=== PATIENT | female | born 1965 | race Caucasian/White ===

== ENCOUNTER 2020-05-20 10:32 | Emergency (ER) | payer MEDICARE, MEDICAID, SELFPAY ==
[2020-05-20 11:16] VITALS: BP 127/79; PULSE 74; RESP 16; TEMP 36.4; O2SAT 98; BMI 16.6
--- NOTE | 2020-05-20 11:31 | ED_ITS ---
HPI - Extremity Problem General Chief complaint: Extremity Injury, Upper Stated complaint: sharp abd pain Time Seen by Provider: 05/20/20 11:31 Source: patient Mode of arrival: ambulatory Limitations: no limitations History of Present Illness HPI Narrative: Epigastric abdominal pain for past 2 weeks now having pain radiating down to his suprapubic area and up into the chest. States she does have longstanding history of bowel problems were she has fluctuation between constipation and diarrhea with occasional pains in epigastrium. States she took some [id number] Tums with minimal improvement. No no cough, chest pain, shortness of breath. No lower extremity swelling. Positive nausea but no vomiting. Related Data Previous Rx's Medication Instructions Recorded omeprazole magnesium [Prilosec OTC] 20 mg PO DAILY 14 Days #14 tab 05/20/20 Allergies Allergy/AdvReac Type Severity Reaction Status Date / Time acetaminophen AdvReac Mild NAUSEA Unverified 02/05/20 15:32 [From DARVOCET-N] propoxyphene AdvReac Mild NAUSEA Unverified 02/05/20 15:32 [From DARVOCET-N] Review of Systems Review of Systems: Constitutional: No Weight loss, No Fever, No Chills, No Night Sweats, No Fatigue, No Malaise ENT/Mouth: No Hearing loss, No Ear Pain, No Nasal Congestion, No Sinus Pain, No Hoarseness, No sore throat, No Rhinorrhea, No Swallowing Difficulty Eyes: No Eye Pain, No Swelling, No Redness, No Foreign Body, No Discharge, No Vision Changes Cardiovascular: No Chest Pain, No SOB, No Dyspnea on Exertion, No Orthopnea, No Edema, No Palpitations Respiratory: No Cough, No Sputum, No Wheezing, No Smoke Exposure, No Dyspnea Gastrointestinal: + Nausea, No Vomiting, No Diarrhea, No Constipation, + abdominal Pain, No Hematochezia, No Melena Genitourinary: no irregular bleeding, No Dysuria, No Urinary Frequency, No Hematuria, No Urinary Incontinence, No Urgency, No Flank Pain Musculoskeletal: No joint pain, No Myalgias, No Joint Swelling Skin: No Skin Lesions, No rash Neuro: No Weakness, No Numbness, No Paresthesias, No Loss of Consciousness, No Dizziness, No Headache Psych: No Social Issues Heme/Lymph: No Bruising, No Bleeding,No Lymphadenopathy Endocrine: No Polyuria, No Polydipsia, No Temperature Intolerance Yes all other systems are reviewed and are negative [facility] Past Medical History Medical History (Updated 05/20/20 @ 14:05 by Emmett Hernandez NP) No known health problems Social History Social History Alcohol intake: never Smoking Status: Current every day smoker Smoked in Last 30 Days: Yes Use of substances other than those prescribed or required for medical reasons: No Advance Directives: No Advance Directives Information Provided: No Physical Exam Vital Signs: Vital Signs: Last Vital Signs Temp 97.5 F 05/20/20 11:16 Pulse 74 05/20/20 11:16 Resp 16 05/20/20 11:16 BP 127/79 05/20/20 11:16 Pulse Ox 98 05/20/20 11:16 Body Mass Index 16.6 REVIEWED Const: General: cooperative and healthy appearing; No acute distress or intoxicated appearing Nutritional Appearance: average body habitus Orientation/consciousness: patient oriented x3 HENMT: Head: Yes normal to inspection Ears: hearing grossly normal bilaterally Eyes: General: appearance normal, both eyes and all related structures Visual Mccarthy: normal visual mccarthy by confrontation Neck: Neck: Yes normal visual inspection and No tender Thyroid: Thyroid normal Chest: Chest palpation & inspection: normal inspection of the chest Resp: Effort & Inspection: normal respiratory effort Auscultation: clear to auscultation bilaterally Cardio: Jugular venous distension: no JVD Rhythm: regular rhythm Heart sounds: S1 normal heart sound present and S2 normal heart sound present GI: Inspection: Yes normal to inspection Palpation (GI): Soft to palpation and Tenderness to palpation present (GI) (mild ttp, no peritonitis.) in the epigastrum Percussion: Yes normal to percussion Auscultation: normal bowel sounds : General: Yes no CVA tenderness Back/Spine/Pelvis: Back: no CVA tenderness Skin: General skin exam: no rashes or lesions noted Neuro: General: patient oriented x3 Extrem: General: Yes normal to inspection Course Course Course Narrative: Acute gastritis versus flare of her IBS. Labs show very mild thrombocytopenia otherwise no significant derangement. Chest x-ray, EKG, CT scan no significant abnormality. Will be discharged home with short course PPI, return for follow-up instructions. She feels comfortable plan. No pain at this time requests something the eat. Stable for discharge. MDM - Extremity (Nontraumatic) Lab Data Result diagrams: 05/20/20 12:28 05/20/20 12:28 Labs: Lab Results 05/20/20 05/20/20 05/20/20 Range/Units 12:28 12:28 12:28 WBC 4.1 L (4.8-10.8) X10*3/uL RBC 4.82 (4.20-5.50) X10*6/uL Hgb 15.8 (12.0-16.0) g/dl Hct 47.3 H (37-47) % MCV 98.1 H (80-98) fL MCH 32.8 (27.0-33.0) pg MCHC 33.4 (31.0-35.0) g/dl RDW 11.9 (11.0-16.0) % Plt Count 156 L (160-400) X10*3/uL MPV 10.1 (9.4-12.3) fL Immature Gran % (Auto) 0.2 (0.0-0.4) % Neut % (Auto) 52.4 (45-73) % Lymph % (Auto) 33.9 (20-40) % Delta % (Auto) 8.1 (2-11) % Eos % (Auto) 4.4 H (0-4) % Baso % (Auto) 1.0 (0-2) % Lymph # (Auto) 1.4 (1.2-4.9) X10*3/uL Delta # (Auto) 0.3 (0.1-1.2) X10*3/uL Eos # (Auto) 0.2 (0.0-0.4) X10*3/uL Baso # (Auto) 0.0 (0.0-0.2) X10*3/uL Abs Immat Gran (auto) 0.01 (0.00-0.03) X10*3/uL Absolute Neuts (auto) 2.1 (2.0-8.3) X10*3/uL Absolute Nucleated RBC 0.000 (0.0-0.012) X10*3/uL Nucleated RBC % (auto) 0.0 (0.0-0.2) /100WBC Smear Tech's Comments VERIFIED PT 10.9 (10.8-13.0) SEC INR 0.9 (0.9-1.1) APTT 30.0 (24.1-38.0) SEC Sodium 141 (135-145) mmol/L Potassium 4.9 (3.3-5.1) mmol/l Chloride 103 (96-108) mmol/L Carbon Dioxide 29 (22-29) mmol/L Anion Gap 14 (12-20) BUN 12 (9-16) mg/dL Creatinine 0.70 (0.5-1.4) mg/dL Estim Creat Clear Calc 69.7 Estimated GFR > 60 Random Glucose 87 (60-115) mg/dL Calcium 9.7 (8.4-10.2) mg/dL Total Bilirubin < 0.2 (0.0-1.0) mg/dL AST 20 (5-31) U/L ALT 13 (0-31) U/L Alkaline Phosphatase 57 (39-117) U/L Troponin I High Sens (<3.5-17.0) ng/L Total Protein 7.3 (6.5-8.0) g/dL Albumin 4.5 (3.5-5.0) g/dL Urine Color Urine Appearance Urine pH (5.0-8.0) Ur Specific Connell (1.005-1.025) Urine Protein (NEG-TRACE) MG/DL Urine Glucose (UA) (NEG) MG/DL Urine Ketones (NEG) MG/DL Urine Blood (NEG) Urine Nitrite (NEG) Ur Leukocyte Esterase (NEG) Urine RBC (0) /HPF Urine WBC (0-4) /HPF Ur Squamous Epith Cells /LPF Urine Bacteria /LPF Coronavirus (PCR) (Negative) Influenza Type A (PCR) (Negative) Influenza Type B (PCR) (Negative) RSV RNA Qual (PCR) (Negative) 05/20/20 05/20/20 05/20/20 Range/Units 12:28 12:47 12:48 WBC (4.8-10.8) X10*3/uL RBC (4.20-5.50) X10*6/uL Hgb (12.0-16.0) g/dl Hct (37-47) % MCV (80-98) fL MCH (27.0-33.0) pg MCHC (31.0-35.0) g/dl RDW (11.0-16.0) % Plt Count (160-400) X10*3/uL MPV (9.4-12.3) fL Immature Gran % (Auto) (0.0-0.4) % Neut % (Auto) (45-73) % Lymph % (Auto) (20-40) % Delta % (Auto) (2-11) % Eos % (Auto) (0-4) % Baso % (Auto) (0-2) % Lymph # (Auto) (1.2-4.9) X10*3/uL Delta # (Auto) (0.1-1.2) X10*3/uL Eos # (Auto) (0.0-0.4) X10*3/uL Baso # (Auto) (0.0-0.2) X10*3/uL Abs Immat Gran (auto) (0.00-0.03) X10*3/uL Absolute Neuts (auto) (2.0-8.3) X10*3/uL Absolute Nucleated RBC (0.0-0.012) X10*3/uL Nucleated RBC % (auto) (0.0-0.2) /100WBC Smear Tech's Comments PT (10.8-13.0) SEC INR (0.9-1.1) APTT (24.1-38.0) SEC Sodium (135-145) mmol/L Potassium (3.3-5.1) mmol/l Chloride (96-108) mmol/L Carbon Dioxide (22-29) mmol/L Anion Gap (12-20) BUN (9-16) mg/dL Creatinine (0.5-1.4) mg/dL Estim Creat Clear Calc Estimated GFR Random Glucose (60-115) mg/dL Calcium (8.4-10.2) mg/dL Total Bilirubin (0.0-1.0) mg/dL AST (5-31) U/L ALT (0-31) U/L Alkaline Phosphatase (39-117) U/L Troponin I High Sens < 3.5 (<3.5-17.0) ng/L Total Protein (6.5-8.0) g/dL Albumin (3.5-5.0) g/dL Urine Color YELLOW Urine Appearance CLEAR Urine pH 6.5 (5.0-8.0) Ur Specific Connell <= 1.005 (1.005-1.025) Urine Protein NEG (NEG-TRACE) MG/DL Urine Glucose (UA) NEG (NEG) MG/DL Urine Ketones NEG (NEG) MG/DL Urine Blood NEG (NEG) Urine Nitrite NEG (NEG) Ur Leukocyte Esterase NEG (NEG) Urine RBC 0 (0) /HPF Urine WBC 0 (0-4) /HPF Ur Squamous Epith Cells NONE /LPF Urine Bacteria NONE /LPF Coronavirus (PCR) NEGATIVE (Negative) Influenza Type A (PCR) NEGATIVE (Negative) Influenza Type B (PCR) NEGATIVE (Negative) RSV RNA Qual (PCR) NEGATIVE (Negative) Imaging Data Abdominal/pelvis CT: Radiologist's impression: [place] [address] CT Scan Report Signed Patient: Magda Allen#: [id number] : 1965Acct:[id number] Age/Sex: 55 / FADM Date: 05/20/20 Loc: HO.ED Attending Dr: Ordering Physician: Emmett Hernandez NP Date of Service: 05/20/20 Procedure(s): CT abdomen pelvis w con Accession Number(s): [id number] cc: Emmett Hernandez NP~ EXAMINATION: CT ABDOMEN AND PELVIS WITH CONTRAST CLINICAL INFORMATION: Abdominal pain. COMPARISON: None TECHNIQUE: Multidetector volumetric images were obtained from the superior aspect of the liver through the pubic symphysis following administration 85 mL of Omnipaque 350 intravenous contrast. Sagittal and coronal reformatted images were obtained on the technologist's workstation. Oral contrast: No This CT examination was performed using dose optimization techniques as appropriate, variously including the following: *Automated exposure control *Adjustment of mA and/or kV according to patient size (this includes techniques or standardized protocols for targeted exams where dose is matched to indication/reason for exam; i.e. extremities or head) *Use of iterative reconstruction technique DLP: 299 mGy-cm FINDINGS: LUNG BASES: Minimal atelectatic changes seen in the lingula medially. The lung bases are clear.. The heart size is normal. LIVER, GALLBLADDER, AND BILIARY TREE: The liver is normal in size, shape, and attenuation. There is a 9 mm hypodensity right hepatic lobe axial image 34/3 and a 4 minute hypodensity caudate lobe image 32/3 most suggestive of simple cyst. There is mild intrahepatic ductal prominence. The common bile duct however appears to be normal caliber. The gallbladder is unremarkable with no evidence of radiopaque gallstones, gallbladder wall thickening, or obvious pericholecystic inflammatory changes. PANCREAS: Unremarkable. SPLEEN: Unremarkable. ADRENAL GLANDS: Unremarkable. KIDNEYS AND URETERS: The kidneys are normal in size, shape, and attenuation. No hydronephrosis, hydroureter, or calculi seen. No perinephric stranding. BLADDER: Unremarkable. GASTROINTESTINAL TRACT: There is scattered stool and gas seen throughout the colon without significant distention. The small bowel loops are normal caliber. The stomach is nondistended and appears unremarkable. ABDOMINAL WALL: No significant hernia is appreciated. LYMPH NODES: Normal. VASCULAR: Unremarkable. PELVIC VISCERA: There is no free fluid. The uterus is anteverted and appears unremarkable. OSSEOUS STRUCTURES: Unremarkable. CT/CT abdomen pelvis w con IMPRESSION: Moderate constipation. No acute process seen. Small hepatic cyst. Nonspecific mild prominence of intrahepatic ducts with a normal-appearing CBD. Dictated By:CHIVO SALAS MD Signed By:<Electronically signed by CHIVO SALAS MD in OV>05/20/20 1349 DD/ 1148 TD/TT: Pharmacognosy Teacher: FARHAD Chest x-ray: Radiologist's impression: [address] [address] XRay Report Signed Patient: Magda Allen#: [id number] : 1965Acct:[id number] Age/Sex: 55 / FADM Date: 05/20/20 Loc: HO.ED Attending Dr: Ordering Physician: Emmett Hernandez NP Date of Service: 05/20/20 Procedure(s): XR chest 1V Accession Number(s): [id number] cc: Emmett Hernandez NP~ EXAMINATION: XR CHEST CLINICAL INFORMATION: Chest pain COMPARISON: None TECHNIQUE: Frontal view of the chest was obtained. FINDINGS: The lungs are hyperinflated but clear of acute process. The heart size and pulmonary vascularity is normal. No gross bony abnormality seen. XR/XR chest 1V IMPRESSION: Hyperinflated lungs without acute process. No change from 05/03/2019. Dictated By:CHIVO SALAS MD Signed By:<Electronically signed by CHIVO SALAS MD in OV>05/20/20 1212 DD/ 1148 TD/TT: Pharmacognosy Teacher: [facility] [place] ECG Data Interpretation: Sinus Mohit Rate 54 First degree AV block PVC SD interval within normal limits No acute ST segment changes No previous Discharge Plan Discharge Clinical Impression: Abdominal pain, epigastric, Constipation, Thrombocytopenia Patient Disposition: Home, Self-Care Instructions: Abdominal Pain (ED) Additional Instructions: Drinking fluids High-fiber diet Taking medication as prescribed Return if any concerns or worsening symptoms otherwise follow up her primary care doctor as discussed Thank you Prescriptions: New omeprazole magnesium [Prilosec OTC] 20 mg tablet,delayed release (DR/EC) 20 mg PO DAILY 14 Days Qty: 14 RF: 0 Referrals: Physician,Unknown [Primary Care Provider] - 1 week Discharge Date/Time: 05/20/20 14:16
--- NOTE | 2020-05-20 11:48 | ECG_ITS ---
Test Reason : STOMACH PAIN Blood Pressure : / mmHG Vent. Rate : 054 BPM Atrial Rate : 054 BPM P-R Int : 272 ms QRS Dur : 080 ms QT Int : 454 ms P-R-T Axes : 052 074 081 degrees QTc Int : 430 ms Sinus bradycardia with 1st degree A-V block with occasional Premature ventricular complexes Abnormal ECG No previous ECGs available Referred By: Emmett Hernandez Electronically Signed By:PRO WHITING
--- NOTE | 2020-05-20 11:48 | CT_ITS ---
EXAMINATION: CT ABDOMEN AND PELVIS WITH CONTRAST CLINICAL INFORMATION: Abdominal pain. COMPARISON: None TECHNIQUE: Multidetector volumetric images were obtained from the superior aspect of the liver through the pubic symphysis following administration 85 mL of Omnipaque 350 intravenous contrast. Sagittal and coronal reformatted images were obtained on the technologist's workstation. Oral contrast: No This CT examination was performed using dose optimization techniques as appropriate, variously including the following: *Automated exposure control *Adjustment of mA and/or kV according to patient size (this includes techniques or standardized protocols for targeted exams where dose is matched to indication/reason for exam; i.e. extremities or head) *Use of iterative reconstruction technique DLP: 299 mGy-cm FINDINGS: LUNG BASES: Minimal atelectatic changes seen in the lingula medially. The lung bases are clear.. The heart size is normal. LIVER, GALLBLADDER, AND BILIARY TREE: The liver is normal in size, shape, and attenuation. There is a 9 mm hypodensity right hepatic lobe axial image 34/3 and a 4 minute hypodensity caudate lobe image 32/3 most suggestive of simple cyst. There is mild intrahepatic ductal prominence. The common bile duct however appears to be normal caliber. The gallbladder is unremarkable with no evidence of radiopaque gallstones, gallbladder wall thickening, or obvious pericholecystic inflammatory changes. PANCREAS: Unremarkable. SPLEEN: Unremarkable. ADRENAL GLANDS: Unremarkable. KIDNEYS AND URETERS: The kidneys are normal in size, shape, and attenuation. No hydronephrosis, hydroureter, or calculi seen. No perinephric stranding. BLADDER: Unremarkable. GASTROINTESTINAL TRACT: There is scattered stool and gas seen throughout the colon without significant distention. The small bowel loops are normal caliber. The stomach is nondistended and appears unremarkable. ABDOMINAL WALL: No significant hernia is appreciated. LYMPH NODES: Normal. VASCULAR: Unremarkable. PELVIC VISCERA: There is no free fluid. The uterus is anteverted and appears unremarkable. OSSEOUS STRUCTURES: Unremarkable. CT/CT abdomen pelvis w con IMPRESSION: Moderate constipation. No acute process seen. Small hepatic cyst. Nonspecific mild prominence of intrahepatic ducts with a normal-appearing CBD.
--- NOTE | 2020-05-20 11:48 | XR_ITS ---
EXAMINATION: XR CHEST CLINICAL INFORMATION: Chest pain COMPARISON: None TECHNIQUE: Frontal view of the chest was obtained. FINDINGS: The lungs are hyperinflated but clear of acute process. The heart size and pulmonary vascularity is normal. No gross bony abnormality seen. XR/XR chest 1V IMPRESSION: Hyperinflated lungs without acute process. No change from 05/03/2019.
[2020-05-20] MEDS: 0.9 % Sodium Chloride 1,000 ML 999 ML IV (12:31)
[2020-05-20 12:41] LABS: Eosinophils Absolute Auto 0.2 X10*3/uL (0.0-0.4); Eosinophils Percent Auto 4.4 % (0-4); Hematocrit 47.3 % (37-47); Hemoglobin 15.8 g/dl (12.0-16.0); Imm Gran Abs Auto 0.01 X10*3/uL (0.00-0.03); Imm Gran Pct Auto 0.2 % (0.0-0.4); Lymphocytes Absolute Auto 1.4 X10*3/uL (1.2-4.9); Lymphocytes Percent Auto 33.9 % (20-40); MANUAL DIFF FLAG SCAN; Mean Corpuscular HGB Conc 33.4 g/dl (31.0-35.0); Mean Corpuscular Hemoglobin 32.8 pg (27.0-33.0); Mean Corpuscular Volume 98.1 fL (80-98); Monocytes Absolute Auto 0.3 X10*3/uL (0.1-1.2); Monocytes Percent Auto 8.1 % (2-11); Neutrophils Absolute Auto 2.1 X10*3/uL (2.0-8.3); Neutrophils Percent Auto 52.4 % (45-73); PLT CLUMP 1; Red Blood Count 4.82 X10*6/uL (4.20-5.50); Red Cell Distribution Width 11.9 % (11.0-16.0); SCAN SMEAR FLAG 1
[2020-05-20 12:46] LABS: INTERNATIONAL NORM RATIO 0.9 (0.9-1.1); Prothrombin Time 10.9 SEC (10.8-13.0)
[2020-05-20 12:55] LABS: Glucose Urine UA NEG (NEG); Leukocyte Esterase Urine NEG (NEG); Nitrite Urine NEG (NEG); PH 6.5 (5.0-8.0); Specific Gravity - Urine <= 1.005 (1.005-1.025); Urine Blood NEG (NEG); Urine Ketones NEG (NEG); Urine Protein NEG (NEG-TRACE)
[2020-05-20 12:56] LABS: Appearance Urine CLEAR; Color Urine YELLOW
[2020-05-20 12:57] LABS: Mean Platelet Volume 10.1 fL (9.4-12.3); Platelet Count 156 X10*3/uL (160-400); White Blood Count 4.1 X10*3/uL (4.8-10.8)
[2020-05-20 12:58] LABS: SLIDE REVIEW VERIFIED
[2020-05-20 13:05] LABS: RBC Urine 0 /HPF (0); WBC Urine 0 /HPF (0-4)
[2020-05-20 13:10] LABS: Troponin-I High Sensitivity < 3.5 ng/L (<3.5-17.0)
[2020-05-20 13:11] LABS: Alanine Aminotransferase 13 U/L (0-31); Albumin Level 4.5 g/dL (3.5-5.0); Alkaline Phosphatase 57 U/L (39-117); Anion Gap 14 (12-20); Aspartate Amino Transferase 20 U/L (5-31); Bilirubin Total < 0.2 mg/dL (0.0-1.0); Blood Urea Nitrogen 12 mg/dL (9-16); Calcium 9.7 mg/dL (8.4-10.2); Carbon Dioxide 29 mmol/L (22-29); Chloride 103 mmol/L (96-108); Creatinine Clr Calc Pharmacy 69.7; Estimated Glomerular Filt Rate > 60; Glucose Random 87 mg/dL (60-115); Potassium 4.9 mmol/l (3.3-5.1); Sodium 141 mmol/L (135-145); Total Protein 7.3 g/dL (6.5-8.0)
[2020-05-20 13:32] LABS: Influenza A PCR NEGATIVE (Negative); Influenza B PCR NEGATIVE (Negative); Resp Syncy Virus RNA Qual PCR NEGATIVE (Negative); SARS COV2 PCR INHOUSE NEGATIVE (Negative)
[2020-05-20] MEDS: iohexoL 350 MG/ML 100 ML INFUS..BTL IV (13:53)
[2020-05-20] MEDS: Ketorolac Tromethamine 30 MG/ML VIAL IVPUSH (14:10)
== END 2020-05-20 14:16 | disposition home or self-care (01) ==
PROVIDERS: Nurse Practitioner Primary Care; Emergency Provider Emergency Medicine Emergency Medical Services
DX: R10.13 Epigastric pain (principal); K59.00 Constipation, unspecified; R07.9 Chest pain, unspecified; D69.6 Thrombocytopenia, unspecified; F17.200 Nicotine dependence, unspecified, uncomplicated; Z71.6 Tobacco abuse counseling; Z79.899 Other long term (current) drug therapy; Z20.828 Contact with and (suspected) exposure to other viral communicable diseases
CPT/HCPCS: 0241U; 36415; 71045; 74177; 80053; 81001; 84484; 85025; 85610; 85730; 93005; 96361; 96374; 96375; 99284; J1885; Q9967

== ENCOUNTER 2021-04-17 20:10 | Emergency (ER) | payer MEDICARE, MEDICAID, SELFPAY ==
[2021-04-17 21:58] VITALS: BP 137/67; PULSE 60; RESP 16; TEMP 36.2; O2SAT 98; BMI 18.5
--- NOTE | 2021-04-18 00:30 | PC.NURSE ---
Pt called multiple times in [facility] with no response.
== END 2021-04-18 00:31 | disposition left against medical advice (07) ==
PROVIDERS: Emergency Provider Emergency Medicine
DX: M79.601 Pain in right arm (principal); M79.602 Pain in left arm
CPT/HCPCS: 99281; 99282

== ENCOUNTER 2021-04-18 16:43 | Emergency (ER) | payer MEDICARE, SELFPAY ==
--- NOTE | ~2021-04-18 | XR_ITS ---
EXAMINATION: XR CERVICAL SPINE CLINICAL INFORMATION: Pain. COMPARISON: CT cervical spine 04/18/2021. TECHNIQUE: 6 views of the cervical spine, inclusive of flexion AP, lateral, open-mouth, flexion and extension lateral radiographs. And extension views, were obtained. FINDINGS: Anterior plate and screw fixation is noted between the levels of C4-C5-C6-C7. Lucency is present in the interbody space at the level of C6-C7. Flexion and extension views demonstrate mild widening of the posterior C6-C7 interbody space and interspinous space. 2.5 mm anterior projection of the C7 screw is noted on the comparison CT is again visualized. Interbody osseous bridging is noted at C5 and C5-C6. No hardware fractures are visualized. The visualized lung apices are clear. The C3-C4 interbody space is grossly normal. Lucency is noted along the inferior aspect of the anterior fusion plate at the level of C7. Intervertebral disc space narrowing at C7-T1. XR/XR cervical spine w flex/ext IMPRESSION: -Status post C4-C5-C6-C7 anterior cervical discectomy and fusion. Interbody bridging is noted at C4-C5 and C5-C6. -No interbody bridging at C6-C7. -Mild intervertebral disc space narrowing C7-T1.
--- NOTE | ~2021-04-18 | CT_ITS ---
EXAMINATION: CT CERVICAL SPINE WITHOUT CONTRAST CLINICAL INFORMATION: Neck pain. COMPARISON: No relevant prior imaging. TECHNIQUE: Remanufacturing Technician images were obtained. CT imaging of the cervical spine was performed without contrast. Data was reformatted into multiplanar images at the acquisition workstation. This CT examination was performed using dose optimization techniques as appropriate, variously including the following: *Automated exposure control *Adjustment of mA and/or kV according to patient size (this includes techniques or standardized protocols for targeted exams where dose is matched to indication/reason for exam; i.e. extremities or head) *Use of iterative reconstruction technique DLP: 327 mGy-cm FINDINGS: There are chronic postoperative changes of an anterior cervical discectomy and fusion at C4-C5, C5-C6, and C6-C7 with plate and screw hardware extending from C4 to C7. Although there is no identifiable lucencies surrounding any of the screws the C7 screw head are not flush with the fusion plate and project approximately 2.5 mm from its surface. There is bridging bone at C4-C5 and C5-C6. No identifiable bridging bone at C6-C7 indicating the possibility of nonunion at this level. Alignment is normal. Vertebral body heights are preserved. No evidence of acute fracture. No abnormal prevertebral soft tissue swelling. There is degenerative arthrosis of the atlantodental joint. Canal patency is not well assessed on this examination due to inherent limitations of CT without intrathecal contrast. There is also streak artifact related to the fusion hardware that obscures the canal from C4 to C7. Soft tissues of the neck are grossly unremarkable. There is pleural-parenchymal scarring at the apices of both lungs. Limited visualization of the posterior fossa reveals no abnormal finding. CT/CT cervical spine wo con IMPRESSION: Although there is no identifiable lucencies surrounding any of the screws, the C7 screw head are not flush with the fusion plate and project approximately 2.5 mm from its surface. There is also no identifiable bridging bone at C6-C7 indicating the possibility of nonunion at C6-C7. Flexion and extension radiographs can be obtained to better assess the integrity of cervical fusion at C6-C7 with close attention to subtle changes in interspinous distance. Hardware is otherwise intact. No evidence of acute fracture
[2021-04-18 17:24] VITALS: BP 111/70; PULSE 63; RESP 18; TEMP 36.7; O2SAT 98; BMI 18.7
--- NOTE | 2021-04-18 19:40 | ED.GENADULT ---
HPI - General Adult General Chief complaint: General Medical Stated complaint: Arm and leg pain Time Seen by Provider: 04/18/21 20:41 Source: patient Mode of arrival: ambulatory Limitations: no limitations History of Present Illness HPI narrative: Patient presents to ED for lower back pain and pain in arms with tingling. Patient denies any fever, chills, chest pain, shortness of breath. Patient states history of arthritis. Patient denies any blunt trauma. Related Data Previous Rx's Medication Instructions Recorded omeprazole magnesium 20 mg 20 mg PO DAILY 14 Days #14 tab 05/20/20 tablet,delayed release (Prilosec OTC) Allergies Allergy/AdvReac Type Severity Reaction Status Date / Time acetaminophen AdvReac Mild NAUSEA Verified 04/18/21 17:24 [From DARVOCET-N] propoxyphene AdvReac Mild NAUSEA Verified 04/17/21 21:57 [From DARVOCET-N] PMFSH Past Medical History Medical History (Updated 04/18/21 @ 17:29 by America Leos RN) Arthritis Breast cancer Carpal tunnel syndrome DVT (deep venous thrombosis) IBS (irritable bowel syndrome) Migraines Social History Social History Alcohol intake: never Advance Directives: No Advance Directives Information Provided: Yes Patient : No Physical Exam Vital Signs: Vital Signs: Last Vital Signs Temp 97.7 F 04/18/21 20:37 Pulse 51 04/18/21 20:37 Resp 18 04/18/21 20:37 BP 105/69 04/18/21 20:37 Pulse Ox 98 04/18/21 20:37 Body Mass Index 18.7 Course Course Course Narrative: During evaluation patient became bradycardic. Heart rate went down to 30s. Monitor heart rate between 40 and 45. Patient has no history of bradycardia. EKG ordered and labs ordered. Patient to be transferred to main ED. Discharge Plan Discharge Prescriptions: No Action omeprazole magnesium [Prilosec OTC] 20 mg tablet,delayed release (DR/EC) 20 mg PO DAILY 14 Days Qty: 14 RF: 0
[2021-04-18] MEDS: Ketorolac Tromethamine 15 MG/ML VIAL 30 MG IM (20:36)
[2021-04-18 20:37] VITALS: BP 105/69; PULSE 37; RESP 18; TEMP 36.5; O2SAT 98
[2021-04-18] MEDS: predniSONE 20 MG TABLET 60 MG PO (20:37)
--- NOTE | 2021-04-18 20:37 | PC.NURSE ---
pt medicated per order
--- NOTE | 2021-04-18 20:41 | ECG_ITS ---
Test Reason : CP Blood Pressure : / mmHG Vent. Rate : 041 BPM Atrial Rate : 041 BPM P-R Int : 216 ms QRS Dur : 086 ms QT Int : 482 ms P-R-T Axes : 085 072 071 degrees QTc Int : 397 ms Marked sinus bradycardia with 1st degree A-V block Abnormal ECG When compared with ECG of 20-MAY-2020 12:58, Premature ventricular complexes are no longer Present Heart rate has decreased Referred By: Saji Medley Electronically Signed By:VENITA TERRY MD
--- NOTE | 2021-04-18 20:48 | PC.NURSE ---
Plan for movement to main ER per Saji SCHAFER for further evaluation. .
[2021-04-18 21:18] LABS: MANUAL DIFF FLAG NO
--- NOTE | 2021-04-18 21:24 | ED_ITS ---
HPI - Extremity Problem General Chief complaint: General Medical Stated complaint: Arm and leg pain Time Seen by Provider: 04/18/21 20:41 Source: patient Mode of arrival: ambulatory Limitations: no limitations History of Present Illness MD Complaint: extremity pain Onset (ago): day(s) (3) Pain Consistency: constant Location: left, right and upper extremity Quality: aching, dull and constant Radiation: distal Relieving factors: nothing Exacerbating factors: nothing Associated symptoms: denies other symptoms Context: other (hx of arthritis and disc / nerve issues in neck in past gets cortisone injections at [facility] [place] - had one about 1 month ago) Related Data Previous Rx's Medication Instructions Recorded omeprazole magnesium 20 mg 20 mg PO DAILY 14 Days #14 tab 05/20/20 tablet,delayed release (Prilosec OTC) morphine 15 mg immediate release 15 mg PO Q6H PRN 3 Days #12 tab 04/18/21 tablet prednisone 20 mg tablet 40 mg PO DAILY 4 Days #8 tab 04/18/21 Allergies Allergy/AdvReac Type Severity Reaction Status Date / Time acetaminophen AdvReac Mild NAUSEA Verified 04/18/21 17:24 [From DARVOCET-N] propoxyphene AdvReac Mild NAUSEA Verified 04/17/21 21:57 [From DARVOCET-N] Review of Systems Review of Systems: Constitutional : No Fever, No Chills ENT/Mouth : No Ear Pain, No Hoarseness, No sore throat Eyes: No Eye Pain, No Swelling, No Redness, No Foreign Body Cardiovascular : No Chest Pain, No SOB Respiratory : No Cough, No Dyspnea Gastrointestinal : No Nausea, No Vomiting, No Diarrhea, No abdominal Pain Genitourinary : No Dysuria, No Hematuria Musculoskeletal : positive joint pain, No Myalgias, No Joint Swelling Skin : No Skin lacerations, No rash Neuro : No Weakness, No Numbness, No Loss of Consciousness, No Dizziness, No Headache Psych : No Anxiety/Panic, No Depression Heme/Lymph: no easy bruising, no Lymphadenopathy Endocrine : No Polyuria, No Polydipsia All other systems reviewed and are negative [facility] Past Medical History Attestation statement: The following information was validated with the patient. Medical History Arthritis Breast cancer Carpal tunnel syndrome DVT (deep venous thrombosis) IBS (irritable bowel syndrome) Migraines Social History Social History (Updated 04/18/21 @ 21:30 by Wendy Howell DO) Alcohol intake: never Patient Tobacco Use Status: Current everyday Tobacco user Advance Directives: No Advance Directives Information Provided: Yes Patient : No Physical Exam Vital Signs: Vital Signs: Last Vital Signs Temp 97.6 F 04/18/21 22:27 Pulse 43 L 04/18/21 22:27 Resp 16 04/18/21 22:27 BP 128/69 04/18/21 22:27 Pulse Ox 98 04/18/21 22:27 Body Mass Index 18.7 Appearance: Alert. Oriented X3. No acute distress. Eyes: Pupils equal, round and reactive to light. ENT: Pharynx normal. Neck: Normal inspection. Neck supple. CVS: Normal heart rate and rhythm. Pulses normal. Respiratory: No respiratory distress. Breath sounds normal. Abdomen: Soft and nontender. Skin: Skin warm and dry. Normal skin color. Normal skin turgor. Extremities: No lower extremity edema. No calf ttp Neuro: Oriented X 3. No motor deficit. No sensory deficit. SILT in both hands, 2+ radial pulses, BCR in digits, 5/5 vba developer strength Course Course Course Narrative: when pressed the patient notes that she has been told she has had a low HR in the past. does feel better can follow up with NSGY given CT scan findings - HR will ambulate and test if she is compensatory given she is asymptomatic has no neuro findings only complaint is pain HR 57 asymptomatic bradycardia with ambulation up to 67 MDM - Extremity (Nontraumatic) MDM Narrative Medical decision making narrative: 56 yo female with hx of cervical spine disease undergoing injections last one 1 month ago woke up 3 days ago and noted pain in both arms - no new injuries no fevers, no IVDA, she is grossly NV intact - doubt infection at this time will need CT cspine, labs, pain control. Patient brought to Main side of ED due to HR 37 at one point she is asymptomatic not on any HR control medications and has been told she has had a low HR in past. Lab Data Result diagrams: 04/18/21 21:09 04/18/21 21:09 Labs: Lab Results 04/18/21 04/18/21 04/18/21 Range/Units 21:09 21:09 21:09 WBC 4.2 L (4.8-10.8) X10*3/uL RBC 4.49 (4.20-5.50) X10*6/uL Hgb 14.2 (12.0-16.0) g/dl Hct 43.0 (37.0-47.0) % MCV 95.8 (80.0-98.0) fL MCH 31.6 (27.0-33.0) pg MCHC 33.0 (31.0-35.0) g/dl RDW 12.5 (11.0-16.0) % Plt Count 158 L (160-400) X10*3/uL MPV 9.4 (9.4-12.3) fL Immature Gran % (Auto) 0.2 (0.0-0.4) % Neut % (Auto) 47.9 (45-73) % Lymph % (Auto) 39.0 (20-40) % [place] % (Auto) 6.9 (2-11) % Eos % (Auto) 5.5 H (0-4) % Baso % (Auto) 0.5 (0-2) % Lymph # (Auto) 1.6 (1.2-4.9) X10*3/uL [place] # (Auto) 0.3 (0.1-1.2) X10*3/uL Eos # (Auto) 0.2 (0.0-0.4) X10*3/uL Baso # (Auto) 0.0 (0.0-0.2) X10*3/uL Abs Immat Gran (auto) 0.01 (0.00-0.03) X10*3/uL Absolute Neuts (auto) 2.0 (2.0-8.3) x10*3/uL Absolute Nucleated RBC 0.000 (0.0-0.012) X10*3/uL Nucleated RBC % (auto) 0.0 (0.0-0.2) /100WBC PT 11.0 (9.9-13.0) SEC INR 1.0 (0.9-1.1) APTT 34.0 (24.1-38.0) SEC Sodium 140 (135-145) mmol/L Potassium 4.0 (3.3-5.1) mmol/L Chloride 104 (96-108) mmol/L Carbon Dioxide 28 (22-29) mmol/L Anion Gap 12 (12-20) BUN 7 L (9-16) mg/dL Creatinine 0.71 (0.5-1.4) mg/dL Estim Creat Clear Calc 69.9 Estimated GFR > 60 Random Glucose 99 (60-115) mg/dL Calcium 9.7 (8.4-10.2) mg/dL Magnesium 1.8 (1.6-2.6) mg/dL Total Bilirubin 0.3 (0.0-1.0) mg/dL AST 17 (5-31) U/L ALT 11 (0-31) U/L Alkaline Phosphatase 55 (39-117) U/L Total Creatine Kinase 28 (26-140) U/L Total Protein 6.4 L (6.5-8.0) g/dL Albumin 4.0 (3.5-5.0) g/dL Urine Color Urine Appearance Urine pH (5.0-8.0) Ur Specific [place] (1.005-1.025) Urine Protein (NEG-TRACE) MG/DL Urine Glucose (UA) (NEG) MG/DL Urine Ketones (NEG) MG/DL Urine Blood (NEG) Urine Nitrite (NEG) Ur Leukocyte Esterase (NEG) Urine Opiates Screen (Not Detect) Urine Fentanyl Screen (Not Detect) Ur Barbiturates Screen (Not Detect) Ur Phencyclidine Scrn (Not Detect) Ur Amphetamines Screen (Not Detect) U Benzodiazepines Scrn (Not Detect) Urine Cocaine Screen (Not Detect) U Marijuana (THC) Screen (Not Detect) Ethyl Alcohol mg/dL 04/18/21 04/18/21 04/18/21 Range/Units 21:09 22:29 22:29 WBC (4.8-10.8) X10*3/uL RBC (4.20-5.50) X10*6/uL Hgb (12.0-16.0) g/dl Hct (37.0-47.0) % MCV (80.0-98.0) fL MCH (27.0-33.0) pg MCHC (31.0-35.0) g/dl RDW (11.0-16.0) % Plt Count (160-400) X10*3/uL MPV (9.4-12.3) fL Immature Gran % (Auto) (0.0-0.4) % Neut % (Auto) (45-73) % Lymph % (Auto) (20-40) % [place] % (Auto) (2-11) % Eos % (Auto) (0-4) % Baso % (Auto) (0-2) % Lymph # (Auto) (1.2-4.9) X10*3/uL [place] # (Auto) (0.1-1.2) X10*3/uL Eos # (Auto) (0.0-0.4) X10*3/uL Baso # (Auto) (0.0-0.2) X10*3/uL Abs Immat Gran (auto) (0.00-0.03) X10*3/uL Absolute Neuts (auto) (2.0-8.3) x10*3/uL Absolute Nucleated RBC (0.0-0.012) X10*3/uL Nucleated RBC % (auto) (0.0-0.2) /100WBC PT (9.9-13.0) SEC INR (0.9-1.1) APTT (24.1-38.0) SEC Sodium (135-145) mmol/L Potassium (3.3-5.1) mmol/L Chloride (96-108) mmol/L Carbon Dioxide (22-29) mmol/L Anion Gap (12-20) BUN (9-16) mg/dL Creatinine (0.5-1.4) mg/dL Estim Creat Clear Calc Estimated GFR Random Glucose (60-115) mg/dL Calcium (8.4-10.2) mg/dL Magnesium (1.6-2.6) mg/dL Total Bilirubin (0.0-1.0) mg/dL AST (5-31) U/L ALT (0-31) U/L Alkaline Phosphatase (39-117) U/L Total Creatine Kinase (26-140) U/L Total Protein (6.5-8.0) g/dL Albumin (3.5-5.0) g/dL Urine Color YELLOW Urine Appearance CLEAR Urine pH 5.5 (5.0-8.0) Ur Specific [place] 1.020 (1.005-1.025) Urine Protein NEG (NEG-TRACE) MG/DL Urine Glucose (UA) NEG (NEG) MG/DL Urine Ketones NEG (NEG) MG/DL Urine Blood NEG (NEG) Urine Nitrite NEG (NEG) Ur Leukocyte Esterase NEG (NEG) Urine Opiates Screen Not Detected (Not Detect) Urine Fentanyl Screen Not Detected (Not Detect) Ur Barbiturates Screen Not Detected (Not Detect) Ur Phencyclidine Scrn Not Detected (Not Detect) Ur Amphetamines Screen Not Detected (Not Detect) U Benzodiazepines Scrn POSITIVE H (Not Detect) Urine Cocaine Screen Not Detected (Not Detect) U Marijuana (THC) Screen POSITIVE H (Not Detect) Ethyl Alcohol < 10 mg/dL ECG Data Attestation EKG: I personally reviewed and interpreted this ECG as follows: ECG interpretation date: 04/18/21 ECG interpretation time: 21:25 Interpretation: Rate: 41 Rhythm: sinus bradycardia with 1st degree AVB [place]: normal Normal P waves. Normal MIKEY. Normal QRS complex. ST T wave : normal no JONATHAN qTC: normal prior studies: no acute ischemia The study has been interpreted contemporaneously by me. . Discharge Plan Discharge Clinical Impression: Cervical radiculopathy, Bradycardia Patient Disposition: Home, Self-Care Instructions: Cervical Radiculopathy (ED), Bradycardia (ED) Additional Instructions: return to ED for any worsening symptoms or concerns please follow up with your neurosurgeon your CT cervical spine needs close follow up Although there is no identifiable lucencies surrounding any of the screws, the C7 screw head are not flush with the fusion plate and project approximately 2.5 mm from its surface. There is also no identifiable bridging bone at C6-C7 indicating the possibility of nonunion at C6-C7. Flexion and extension radiographs can be obtained to better assess the integrity of cervical fusion at C6-C7 with close attention to subtle changes in interspinous distance. Hardware is otherwise intact. No evidence of acute fracture Prescriptions: New morphine 15 mg tablet 15 mg PO Q6H PRN (Reason: pain) 3 Days Qty: 12 RF: 0 prednisone 20 mg tablet 40 mg PO DAILY 4 Days Qty: 8 RF: 0 No Action omeprazole magnesium [Prilosec OTC] 20 mg tablet,delayed release (DR/EC) 20 mg PO DAILY 14 Days Qty: 14 RF: 0 Referrals: Robert Hines MD [Physician] - 1 week
[2021-04-18 21:29] LABS: Basophils Percent Auto 0.5 % (0-2); Eosinophils Absolute Auto 0.2 X10*3/uL (0.0-0.4); Eosinophils Percent Auto 5.5 % (0-4); Hemoglobin 14.2 g/dl (12.0-16.0); Imm Gran Abs Auto 0.01 X10*3/uL (0.00-0.03); Imm Gran Pct Auto 0.2 % (0.0-0.4); Lymphocytes Absolute Auto 1.6 X10*3/uL (1.2-4.9); Mean Corpuscular Hemoglobin 31.6 pg (27.0-33.0); Mean Corpuscular Volume 95.8 fL (80.0-98.0); Mean Platelet Volume 9.4 fL (9.4-12.3); Monocytes Absolute Auto 0.3 X10*3/uL (0.1-1.2); Monocytes Percent Auto 6.9 % (2-11); Neutrophils Percent Auto 47.9 % (45-73); Platelet Count 158 X10*3/uL (160-400); Red Blood Count 4.49 X10*6/uL (4.20-5.50); Red Cell Distribution Width 12.5 % (11.0-16.0); White Blood Count 4.2 X10*3/uL (4.8-10.8)
[2021-04-18 21:32] LABS: Ethanol < 10 mg/dL
[2021-04-18] MEDS: predniSONE 20 MG TABLET 40 MG PO (21:36)
[2021-04-18] MEDS: diazePAM 5 MG TABLET PO (21:36)
[2021-04-18] MEDS: oxyCODONE HCl Immed Release 5 MG TABLET PO (21:37)
[2021-04-18 21:40] LABS: Alanine Aminotransferase 11 U/L (0-31); Alkaline Phosphatase 55 U/L (39-117); Anion Gap 12 (12-20); Aspartate Amino Transferase 17 U/L (5-31); Bilirubin Total 0.3 mg/dL (0.0-1.0); Blood Urea Nitrogen 7 mg/dL (9-16); Calcium 9.7 mg/dL (8.4-10.2); Carbon Dioxide 28 mmol/L (22-29); Chloride 104 mmol/L (96-108); Creatinine Clr Calc Pharmacy 69.9; Estimated Glomerular Filt Rate > 60; Glucose Random 99 mg/dL (60-115); Magnesium 1.8 mg/dL (1.6-2.6); Sodium 140 mmol/L (135-145); Total Protein 6.4 g/dL (6.5-8.0)
[2021-04-18 22:27] VITALS: BP 128/69; PULSE 43; RESP 16; TEMP 36.4; O2SAT 98
[2021-04-18 22:35] LABS: Appearance Urine CLEAR; Color Urine YELLOW; Glucose Urine UA NEG (NEG); Leukocyte Esterase Urine NEG (NEG); Nitrite Urine NEG (NEG); PH 5.5 (5.0-8.0); Urine Blood NEG (NEG); Urine Ketones NEG (NEG); Urine Protein NEG (NEG-TRACE)
[2021-04-18 22:54] LABS: Amphetamine Screen Urine Not Detected (Not Detect); Barbiturates, Urine Not Detected (Not Detect); Benzodiazepines Screen Urine POSITIVE (Not Detect); Cannabinoid Screen Urine POSITIVE (Not Detect); Cocaine Screen Urine Not Detected (Not Detect); Fentanyl, urine Not Detected (Not Detect); Opiate Screen Urine Not Detected (Not Detect); Phencyclidine Screen Urine Not Detected (Not Detect)
== END 2021-04-19 00:32 | disposition home or self-care (01) ==
PROVIDERS: Physician Assistant; Emergency Provider Emergency Medicine
DX: M54.12 Radiculopathy, cervical region (principal); R00.1 Bradycardia, unspecified; M54.2 Cervicalgia; Z79.899 Other long term (current) drug therapy
CPT/HCPCS: 36415; 72052; 72125; 80053; 80307; 81003; 82077; 82550; 83735; 85025; 85610; 85730; 93005; 96372; 99284; J1885

== ENCOUNTER 2021-04-30 19:19 | Emergency (ER) | payer MEDICARE, SELFPAY | END 2021-04-30 21:19 | disposition left against medical advice (07) | LOC: HO.ED 21:20 | PROVIDERS: Emergency Provider Emergency Medicine; PCP Physician Assistant | DX: R68.89 Other general symptoms and signs (principal) ==

== ENCOUNTER 2021-09-02 20:16 | Emergency (ER) | payer MEDICARE, SELFPAY ==
[2021-09-02 20:40] VITALS: BP 121/62; PULSE 52; RESP 16; TEMP 36.8; O2SAT 95; BMI 19.0
[2021-09-03] MEDS: Ketorolac Tromethamine 15 MG/ML VIAL IM (00:04)
[2021-09-03] MEDS: Lidocaine 4 % Patch ADH..PATCH 1 PATCH TRANSDERMA (00:04)
--- NOTE | 2021-09-03 00:36 | ED_ITS ---
HPI - Back Pain/Injury General Chief Complaint: Back Pain/Injury Stated Complaint: Back pain Time Seen by Provider: 09/02/21 23:34 Source: patient Mode of arrival: ambulatory History of Present Illness HPI Narrative: 56-year-old female with acute on chronic back pain that she reports is atraumatic and not associated with fever, chills, saddle anesthesia, weakness to either lower extremity and otherwise denies any bowel or bladder dysfunction. Patient does report that the back pain radiates into her posterior aspect of bilateral lower legs. Related Data Previous Rx's Medication Instructions Recorded omeprazole magnesium 20 mg 20 mg PO DAILY 14 Days #14 tab 05/20/20 tablet,delayed release (Prilosec OTC) morphine 15 mg immediate release 15 mg PO Q6H PRN 3 Days #12 tab 04/18/21 tablet prednisone 20 mg tablet 40 mg PO DAILY 4 Days #8 tab 04/18/21 cyclobenzaprine 5 mg tablet 5 mg PO BEDTIME PRN #4 tab 09/03/21 ketorolac 10 mg tablet 10 mg PO Q6H PRN 5 Days #20 tab 09/03/21 Allergies Allergy/AdvReac Type Severity Reaction Status Date / Time acetaminophen AdvReac Mild NAUSEA Verified 04/18/21 17:24 [From DARVOCET-N] propoxyphene AdvReac Mild NAUSEA Verified 04/17/21 21:57 [From DARVOCET-N] Review of Systems Review of Systems: Pertinent positives and negatives as stated in HPI 10 point review of systems is otherwise negative. [facility] Past Medical History Source: nursing notes reviewed Medical History Arthritis Breast cancer Carpal tunnel syndrome DVT (deep venous thrombosis) IBS (irritable bowel syndrome) Migraines Social History Social History Alcohol intake: never Patient Tobacco Use Status: Current everyday Tobacco user Advance Directives: No Advance Directives Information Provided: No Physical Exam Vital Signs: Vital Signs: Last Vital Signs Temp 98.2 F 09/02/21 20:40 Pulse 52 09/02/21 20:40 Resp 16 09/02/21 20:40 BP 121/62 09/02/21 20:40 Pulse Ox 95 09/02/21 20:40 BMI result Body Mass Index 19.0 VITAL SIGNS: Reviewed. GENERAL: Frail in appearance, in no acute distress. HEAD: Normocephalic/atraumatic EYES: PERRLA, EOMI EARS: Ext canals without abnormality OROPHARYNX: no oral lesions noted, posterior pharynx clear LUNGS: Normal breath sounds. No adventitious sounds or accessory muscle use. SpO2<95> CARDIOVASCULAR: Regular rate and rhythm without noted murmurs ABDOMEN: Soft, non-tender, non-distended with bowel sounds. BACK: no midline vertebral tenderness, no step-offs, straight leg test is negative MUSCULOSKELETAL: No tenderness, deformities, or effusions noted on gross inspection. EXTREMITIES: No cyanosis, clubbing or edema. SKIN: Inspection of the skin reveals no rashes NEUROLOGIC: Alert and oriented x 4. Strength and sensation to light touch were grossly intact x 4. Course Course Course Narrative: 56-year-old female with history and clinical presentation consistent with acute on chronic back pain and no concern for infection,cauda equina or spinal abscess and inconsistent with renal colic. Patient was provided with Toradol as well as lidocaine patch and on re-evaluation she states she feels better and is ready to go home. Discharge Plan Discharge Clinical Impression: Sciatica, Back pain Patient Disposition: Home, Self-Care Instructions: Sciatica (ED), Back Pain (ED), Lower Back Exercises (ED) Additional Instructions: 1. Resume all home medications as prescribed. 2. You have 2 prescriptions that have been sent to your pharmacy. recommend lidocaine patch, apply to area of maximal tenderness as directed on the outside packaging. 3. Follow-up with your primary care provider on Sunday morning to set up an appointment for re-evaluation. Return to the ER for worsening symptoms. Prescriptions: New ketorolac 10 mg tablet 10 mg PO Q6H PRN (Reason: pain) 5 Days Qty: 20 0RF Rx Instructions: Patient received Toradol in the emergency room. cyclobenzaprine 5 mg tablet 5 mg PO BEDTIME PRN (Reason: muscle spasm) Qty: 4 0RF No Action omeprazole magnesium [Prilosec OTC] 20 mg tablet,delayed release (DR/EC) 20 mg PO DAILY 14 Days Qty: 14 0RF morphine 15 mg tablet 15 mg PO Q6H PRN (Reason: pain) 3 Days Qty: 12 0RF prednisone 20 mg tablet 40 mg PO DAILY 4 Days Qty: 8 0RF Referrals: Sheron Ward PA-C [Primary Care Provider] -
== END 2021-09-03 00:56 | disposition home or self-care (01) ==
PROVIDERS: Emergency Provider Student in an Organized Health Care Education/Training Program; PCP Physician Assistant
DX: M54.40 Lumbago with sciatica, unspecified side (principal); F17.200 Nicotine dependence, unspecified, uncomplicated; Z71.6 Tobacco abuse counseling; Z79.899 Other long term (current) drug therapy
CPT/HCPCS: 96372; 99284; J1885

== ENCOUNTER 2021-12-01 14:15 | Emergency (ER) | payer MEDICARE, SELFPAY ==
[2021-12-01 14:51] VITALS: BP 127/73; PULSE 57; RESP 18; TEMP 36.8; O2SAT 99; BMI 18.8
== END 2021-12-01 15:39 | disposition left against medical advice (07) ==
PROVIDERS: Emergency Provider Emergency Medicine
DX: M54.2 Cervicalgia (principal)
CPT/HCPCS: 99281

== ENCOUNTER 2021-12-17 10:09 | Emergency (ER) | payer MEDICARE, SELFPAY ==
[2021-12-17 10:56] VITALS: BP 100/41; PULSE 50; RESP 18; TEMP 36.6; O2SAT 94; BMI 19.0
== END 2021-12-17 13:47 | disposition left against medical advice (07) ==
PROVIDERS: Emergency Provider Emergency Medicine
DX: M54.2 Cervicalgia (principal); F17.200 Nicotine dependence, unspecified, uncomplicated
CPT/HCPCS: 99281

== ENCOUNTER 2022-04-21 12:44 | Emergency (ER) | payer MEDICARE, SELFPAY ==
--- NOTE | ~2022-04-21 | CT_ITS ---
EXAMINATION: NONCONTRAST HEAD CT NONCONTRAST CERVICAL SPINE CT INDICATION INFORMATION: Dizziness and cervical pain COMPARISON: Cervical spine radiographs and CT 04/18/2021 TECHNIQUE: Separate noncontrast CT examinations of the head and cervical spine were performed. Coronal and sagittal images were created for each examination at the technologist workstation. This CT examination was performed using dose optimization techniques as appropriate, variously including the following: *Automated exposure control *Adjustment of mA and/or kV according to patient size (this includes techniques or standardized protocols for targeted exams where dose is matched to indication/reason for exam; i.e. extremities or head) *Use of iterative reconstruction technique DLP: 900 mGy-cm FINDINGS: HEAD: No intra or extra-axial fluid collection, hemorrhage, or mass. No ventriculomegaly. No midline shift or herniation. Basal cisterns are patent. Wyman-white matter differentiation is maintained. No territorial encephalomalacia. No significant volume loss. There is no abnormal attenuation within the brain parenchyma. No calvarial fracture or soft tissue abnormality. The mastoid air cells and visualized portions of the paranasal sinuses are well aerated. CERVICAL SPINE: Alignment: Normal. No subluxation. Vertebra: No acute fracture. No prevertebral soft tissue swelling. Degenerative disc disease: Status post C4-C7 ACDF with intact anterior plate and screw fixation and intervertebral spacers at C4-C5, C5-C6 and C6-C7. Solid interbody fusion at C4-C5 and C5-C6. Minimal if any interbody fusion at C6-C7. There is no mild lucency surrounding the right C7 fixation screw measuring 1 mm in thickness. The head of the left C7 fixation screw projects approximately 3 mm proud to the fixation plate, unchanged. Mild degenerative disc disease at C7-T1 with preserved disc height and minimal endplate osteophyte formation. Other findings: Right greater than left pleural parenchymal thickening/scarring at the lung apices. No cervical lymphadenopathy or obvious mass identified. CT/CT cervical spine wo IV con IMPRESSION: 1. No intracranial hemorrhage, calvarial fracture, or other acute intracranial abnormality. 2. No subluxation or acute cervical spine fracture. 3. Status post C4-C7 ACDF with intact anterior plate and screw fixation and solid interbody fusion at C4-C5 and C5-C6. Minimal if any interbody fusion at C6-C7. 4. Mild lucency surrounding the right C7 fixation screw measuring 1 mm in thickness. The head of the left C7 fixation screw projects approximately 3 mm proud to the fixation plate, unchanged. Findings may be sequela of mild motion at C6-C7. 5. Unchanged mild degenerative disc disease at C7-T1.
--- NOTE | 2022-04-21 13:04 | ED_ITS ---
HPI - General Adult General Chief complaint: Anxiety Stated complaint: BODY PAIN AND SHAKING Time Seen by Provider: 04/21/22 16:37 Source: patient Mode of arrival: ambulatory Limitations: no limitations Related Data Previous Rx's Medication Instructions Recorded omeprazole magnesium 20 mg 20 mg PO DAILY 14 days #14 tabs 05/20/20 tablet,delayed release (Prilosec OTC) morphine 15 mg immediate release 15 mg PO Q6H PRN pain 3 days #12 04/18/21 tablet tabs prednisone 20 mg tablet 40 mg PO DAILY 4 days #8 tabs 04/18/21 cyclobenzaprine 5 mg tablet 5 mg PO BEDTIME PRN muscle spasm 09/03/21 #4 tabs ketorolac 10 mg tablet 10 mg PO Q6H PRN pain 5 days #20 09/03/21 tabs cyclobenzaprine 10 mg tablet 10 mg PO Q8H #14 tabs 04/21/22 naproxen 500 mg tablet 500 mg PO BID PRN pain #14 tabs 04/21/22 tramadol 50 mg tablet 50 mg PO Q8H PRN pain #10 tabs 04/21/22 Allergies Allergy/AdvReac Type Severity Reaction Status Date / Time acetaminophen AdvReac Mild NAUSEA Verified 12/17/21 10:55 [From DARVOCET-N] propoxyphene AdvReac Mild NAUSEA Verified 12/17/21 10:55 [From DARVOCET-N] PMF Past Medical History Medical History Arthritis Breast cancer Carpal tunnel syndrome DVT (deep venous thrombosis) IBS (irritable bowel syndrome) Migraines Social History Social History Alcohol intake: never Patient Tobacco Use Status: Current everyday Tobacco user Advance Directives: No Advance Directives Information Provided: No Physical Exam ED Vital Signs: Vital Signs - 24 hr 04/21/22 13:05 Temperature 98.1 F Pulse Rate 47 L Respiratory Rate 16 Blood Pressure 119/41 L Pulse Oximetry 98 Oxygen Delivery Method Room Air BMI result Body Mass Index 17.7 Course Course Course Narrative: RME performed by Rivka Bailey PA-C. Patient is a 57 year old female with a history of anorexia, breast cancer, fibromyalgia, and anxiety presenting to the emergency department today with body pain. Patient states that the other day she had pain shoot all through her body which triggered her anxiousness. Patient st ates that she is already on anti-anxiety medication and sees a therapist. CBC, CMP, TSH, Mag, and head CT ordered. Patient evaluated and discharged by HANH Rico who created and completed a separate ED note. Medications Administered Discontinued Medications Generic Name Dose Route Start Last Admin Trade Name Freq PRN Reason Stop Dose Admin Cyclobenzaprine HCl 10 mg 04/21/22 17:14 04/21/22 17:17 Cyclobenzaprine Hcl 10 Mg Tablet PO 04/21/22 17:15 10 mg ONCE ONE Administration Medical Decision Making Lab Data Result diagrams: 04/21/22 13:46 Labs: Lab Results 04/21/22 Range/Units 13:46 Sodium 138 (135-145) mmol/L Potassium 4.4 (3.3-5.1) mmol/L Chloride 106 (96-108) mmol/L Carbon Dioxide 28 (22-29) mmol/L Anion Gap 8 L (12-20) BUN 24 H (9-16) mg/dL Creatinine 0.66 (0.5-1.4) mg/dL Estim Creat Clear Calc 74.9 Estimated GFR > 60 Random Glucose 93 (60-115) mg/dL Calcium 9.7 (8.4-10.2) mg/dL Magnesium 1.7 (1.6-2.6) mg/dL Total Bilirubin 0.3 (0.0-1.0) mg/dL AST 21 (5-31) U/L ALT 21 (0-31) U/L Alkaline Phosphatase 70 (39-117) U/L Total Protein 5.9 L (6.5-8.0) g/dL Albumin 3.8 (3.5-5.0) g/dL TSH < 0.01 L (0.32-4.0) uIU/mL Free T4 1.46 (0.71-1.85) ng/dL Discharge Plan Discharge Clinical Impression: Fibromyalgia, Acute anxiety, Panic disorder, Chronic neck pain Patient Disposition: Home, Self-Care Instructions: Fibromyalgia (ED), Anxiety (ED), Panic Attack (ED) Prescriptions: New naproxen 500 mg tablet 500 mg PO BID PRN (Reason: pain) Qty: 14 0RF cyclobenzaprine 10 mg tablet 10 mg PO Q8H Qty: 14 0RF tramadol 50 mg tablet 50 mg PO Q8H PRN (Reason: pain) Qty: 10 0RF Rx Instructions: May partially fill upon patient request No Action omeprazole magnesium [Prilosec OTC] 20 mg tablet,delayed release (DR/EC) 20 mg PO DAILY 14 Days Qty: 14 0RF morphine 15 mg tablet 15 mg PO Q6H PRN (Reason: pain) 3 Days Qty: 12 0RF prednisone 20 mg tablet 40 mg PO DAILY 4 Days Qty: 8 0RF ketorolac 10 mg tablet 10 mg PO Q6H PRN (Reason: pain) 5 Days Qty: 20 0RF Rx Instructions: Patient received Toradol in the emergency room. cyclobenzaprine 5 mg tablet 5 mg PO BEDTIME PRN (Reason: muscle spasm) Qty: 4 0RF Referrals: Physician,Unknown J [Primary Care Provider] - 3 days (your pcp) Stand Alone Forms: Work/School Release Interventions: ED Discharge Assessment Last Done: 04/21/22 17:42 Discharge Date/Time: 04/21/22 17:44
[2022-04-21 13:05] VITALS: BP 119/41; PULSE 47; RESP 16; TEMP 36.7; O2SAT 98; BMI 17.7
[2022-04-21 14:45] LABS: Alanine Aminotransferase 21 U/L (0-31); Albumin Level 3.8 g/dL (3.5-5.0); Alkaline Phosphatase 70 U/L (39-117); Anion Gap 8 (12-20); Aspartate Amino Transferase 21 U/L (5-31); Bilirubin Total 0.3 mg/dL (0.0-1.0); Blood Urea Nitrogen 24 mg/dL (9-16); Calcium 9.7 mg/dL (8.4-10.2); Carbon Dioxide 28 mmol/L (22-29); Chloride 106 mmol/L (96-108); Creatinine Clr Calc Pharmacy 74.9; Estimated Glomerular Filt Rate > 60; Glucose Random 93 mg/dL (60-115); Magnesium 1.7 mg/dL (1.6-2.6); Potassium 4.4 mmol/L (3.3-5.1); Sodium 138 mmol/L (135-145); TSH reflex Free T4 < 0.01 uIU/mL (0.32-4.0); Total Protein 5.9 g/dL (6.5-8.0)
[2022-04-21 15:54] LABS: Free T4 (Free Thyroxine) 1.46 ng/dL (0.71-1.85)
--- NOTE | 2022-04-21 16:56 | ED.ANXIETY ---
HPI - Anxiety General Chief Complaint: Anxiety Stated Complaint: BODY PAIN AND SHAKING Time Seen by Provider: 04/21/22 16:37 Source: patient Mode of arrival: ambulatory Limitations: no limitations History of Present Illness HPI narrative: Patient is a 57 year old female with a PMH of Migraines, IBS, DVT, Carpal tunnel syndrome, breast cancer and arthritis presenting today with body aches, back pain and headache. Patient reports an anxiety attack that happened a day ago. She also reports a history of anxiety and depression for which she was taking Lorazepam but stopped taking it as she was not tolerating it too well.Patient reports that these symptoms are chronic and have progressively worsened over time. She also reports bilateral hand tremors at rest that have also been ongoing for two years now. Patient reports a history of neck surgery in 2018 that did not resolve her back and neck problems but rather made it worse. Patient denies any abdominal pain, chest pain, SOB, recent trauma or injuries to her neck/back or IVDU or fevers. MD complaint: anxiety Onset (ago): day(s) (1 day ago) Severity: moderate Quality: worsening Place: work History of similar episodes: Yes Provoking factors: work/job stress Relieving factors: rest Associated symptoms: headaches and anorexia Related Data Previous Rx's Medication Instructions Recorded omeprazole magnesium 20 mg 20 mg PO DAILY 14 days #14 tabs 05/20/20 tablet,delayed release (Prilosec OTC) morphine 15 mg immediate release 15 mg PO Q6H PRN pain 3 days #12 04/18/21 tablet tabs prednisone 20 mg tablet 40 mg PO DAILY 4 days #8 tabs 04/18/21 cyclobenzaprine 5 mg tablet 5 mg PO BEDTIME PRN muscle spasm 09/03/21 #4 tabs ketorolac 10 mg tablet 10 mg PO Q6H PRN pain 5 days #20 09/03/21 tabs cyclobenzaprine 10 mg tablet 10 mg PO Q8H #14 tabs 04/21/22 naproxen 500 mg tablet 500 mg PO BID PRN pain #14 tabs 04/21/22 tramadol 50 mg tablet 50 mg PO Q8H PRN pain #10 tabs 04/21/22 Allergies Allergy/AdvReac Type Severity Reaction Status Date / Time acetaminophen AdvReac Mild NAUSEA Verified 12/17/21 10:55 [From DARVOCET-N] propoxyphene AdvReac Mild NAUSEA Verified 12/17/21 10:55 [From DARVOCET-N] Review of Systems Review of Systems: Constitutional : No recent trauma, No Fever, No Chills, + fatigue, ENT/Mouth : No Hearing loss, No Ear Pain, No Nasal Congestion, No Sinus Pain, No Hoarseness, No sore throat, No Rhinorrhea, No Swallowing Difficulty Cardiovascular : No Chest Pain, No SOB Respiratory : No Cough, No Dyspnea Gastrointestinal : No Nausea, No Vomiting, No Diarrhea, No abdominal Pain, No Hematochezia, No Melena Genitourinary : No Dysuria, No Urinary Frequency, No Hematuria, No Urinary or Bowel Incontinence/retention Musculoskeletal : + Back pain, + neck pain, + joint stiffness, + body aches, No joint swelling Skin : No Skin Lesions, No rash or signs of infection Neuro : + Bilateral hand tremors, + general Weakness, No radiation, + Paresthesias,+ headache, no loss of bowel or bladder incontinence, no saddle anesthesia Denies history of IV drug usage. Yes all other systems are reviewed and are negative [facility] Past Medical History Attestation statement: The following information was validated with the patient. Source: old records reviewed, obtained from family and nursing notes reviewed Medical History Arthritis Breast cancer Carpal tunnel syndrome DVT (deep venous thrombosis) IBS (irritable bowel syndrome) Migraines Social History Social History Alcohol intake: never Patient Tobacco Use Status: Current everyday Tobacco user Advance Directives: No Advance Directives Information Provided: No Physical Exam Vital Signs: Vital Signs: Last Vital Signs Temp 98.1 F 04/21/22 13:05 Pulse 47 L 04/21/22 13:05 Resp 16 04/21/22 13:05 BP 119/41 L 04/21/22 13:05 Pulse Ox 98 04/21/22 13:05 O2 Del Method 04/21/22 13:05 BMI result Body Mass Index 17.7 vital signs have been reviewed and appeared to be correct. Blood pressure is 119/41. Heart rate is 47. Respiration rate normal. Temperature normal. Oxygen saturation normal. Appearance: Alert. Oriented X3. No acute distress. Head: Normal external exam. Normocephalic. Atraumatic. Eyes: PERRLA. EOMI. Conjunctiva and sclera normal. Eyelids normal. ENT: EAC normal. TM's Normal. Pharynx normal. Uvula midline. Moist mucous membranes. No trismus noted. No drooling noted. No muffled voice noted. Neck: Normal inspection. Neck supple. FROM. No neck mass noted. CVS: Bradycardic heart rate and normal rhythm. Heart sound normal. No murmurs noted. Respiratory: No respiratory distress. Painless inspiration. Breath sounds normal. No wheezes/rales/rhonchi noted. Chest nontender. No accessory muscle usage noted or decreased air movement noted. Abdomen: Soft and nontender. Bowel sounds normal in all 4 quadrants. No distention noted. No organomegaly noted. No visible injury noted. Back: No CVA tenderness. No obvious deformities, or edema. Moderate para-spinal muscular tenderness from lumbar region to coccyx. Limited ROM in back. FROM in lower extremities. 3/5 strength hip extension/flexion, abduction, adduction. Moderate lumbar pain upon palpation and with hip flexion against resistance. Straight leg raise test negative on right; Straight leg raise test negative on left; No rashes/lesion/induration/fluctuance or signs infection noted. Skin: Skin warm and dry. Normal skin color. Normal skin turgor. No rashes/lesions/lacerations noted. Extremities: No lower extremity edema. Extremities exhibit normal range of motion. Extremities nontender. Neuro: Oriented X 3. No motor deficit. No sensory deficit. Patient has a normal steady gait. Course Course Course Narrative: Patient is a 57 year old female with a PMH of Migraines, IBS, DVT, Carpal tunnel syndrome, breast cancer and arthritis presenting today with body aches, back pain, bilateral hand tremors and headache. Patient reports an anxiety attack that happened a day ago. She also reports a history of anxiety and depression for which she was taking Lorazepam but stopped taking it as she was not tolerating it too well.Patient reports that these symptoms are chronic and have progressively worsened over time. Patient denies any abdominal pain, chest pain, SOB, recent trauma or injuries to her neck/back. Patient had a pulse of 42 and BP of 119/41. On physical exam, there was no obvious deformities, or edema noted in the back. There was moderate para-spinal muscular tenderness from lumbar region to coccyx. Limited ROM in back. FROM in lower extremities. 3/5 strength hip extension/flexion, abduction, adduction. Moderate lumbar pain upon palpation and with hip flexion against resistance. Neuro exam showed no deficits. Chemistry panel revealed an anion gap of 8L , BUN of 24, total protein of 5.9. TSH of less than 0.01 with a normal free t4. Head and cervical CT revealed; 1.? No intracranial hemorrhage, calvarial fracture, or other acute intracranial abnormality. 2.? No subluxation or acute cervical spine fracture. 3.? Status post C4-C7 ACDF with intact anterior plate and screw fixation and solid interbody fusion at C4-C5 and C5-C6. Minimal if any interbody fusion at C6-C7. 4.? Mild lucency surrounding the right C7 fixation screw measuring 1 mm in thickness. The head of the left C7 fixation screw projects approximately 3 mm proud to the fixation plate, unchanged. Findings may be sequela of mild motion at C6-C7. 5.? Unchanged mild degenerative disc disease at C7-T1 Plan: Cyclobenzaprine 10mg PO was administered at the ED. Patient was discharged with naproxen/flexeril and Tramadol 50mg. Patient understands and agrees with plan. Medications Administered Discontinued Medications Generic Name Dose Route Start Last Admin Trade Name Freq PRN Reason Stop Dose Admin Cyclobenzaprine HCl 10 mg 04/21/22 17:14 04/21/22 17:17 Cyclobenzaprine Hcl 10 Mg Tablet PO 04/21/22 17:15 10 mg ONCE ONE Administration MDM - Anxiety Medical Records Attestation: I reviewed the patient's medical records. Lab Data Attestation: I reviewed the patient's lab results. Result diagrams: 04/21/22 13:46 Labs: Lab Results 04/21/22 Range/Units 13:46 Sodium 138 (135-145) mmol/L Potassium 4.4 (3.3-5.1) mmol/L Chloride 106 (96-108) mmol/L Carbon Dioxide 28 (22-29) mmol/L Anion Gap 8 L (12-20) BUN 24 H (9-16) mg/dL Creatinine 0.66 (0.5-1.4) mg/dL Estim Creat Clear Calc 74.9 Estimated GFR > 60 Random Glucose 93 (60-115) mg/dL Calcium 9.7 (8.4-10.2) mg/dL Magnesium 1.7 (1.6-2.6) mg/dL Total Bilirubin 0.3 (0.0-1.0) mg/dL AST 21 (5-31) U/L ALT 21 (0-31) U/L Alkaline Phosphatase 70 (39-117) U/L Total Protein 5.9 L (6.5-8.0) g/dL Albumin 3.8 (3.5-5.0) g/dL TSH < 0.01 L (0.32-4.0) uIU/mL Free T4 1.46 (0.71-1.85) ng/dL Imaging Data CT scan of brain/cervical spine: Attestation: I personally reviewed and interpreted this imaging study as follows: Radiologist's impression: FINDINGS: HEAD: No intra or extra-axial fluid collection, hemorrhage, or mass. No ventriculomegaly. No midline shift or herniation. Basal cisterns are patent. Wyman-white matter differentiation is maintained. No territorial encephalomalacia. ?No significant volume loss. There is no abnormal attenuation within the brain parenchyma. No calvarial fracture or soft tissue abnormality. ?The mastoid air cells and visualized portions of the paranasal sinuses are well aerated. CERVICAL SPINE: Alignment: Normal. No subluxation. Vertebra: No acute fracture. No prevertebral soft tissue swelling. Degenerative disc disease: Status post C4-C7 ACDF with intact anterior plate and screw fixation and intervertebral spacers at C4-C5, C5-C6 and C6-C7. Solid interbody fusion at C4-C5 and C5-C6. Minimal if any interbody fusion at C6-C7. There is no mild lucency surrounding the right C7 fixation screw measuring 1 mm in thickness. The head of the left C7 fixation screw projects approximately 3 mm proud to the fixation plate, unchanged. Mild degenerative disc disease at C7-T1 with preserved disc height and minimal endplate osteophyte formation. Other findings: Right greater than left pleural parenchymal thickening/scarring at the lung apices. No cervical lymphadenopathy or obvious mass identified. CT/CT head/brain wo IV con IMPRESSION: 1.? No intracranial hemorrhage, calvarial fracture, or other acute intracranial abnormality. 2.? No subluxation or acute cervical spine fracture. 3.? Status post C4-C7 ACDF with intact anterior plate and screw fixation and solid interbody fusion at C4-C5 and C5-C6. Minimal if any interbody fusion at C6-C7. 4.? Mild lucency surrounding the right C7 fixation screw measuring 1 mm in thickness. The head of the left C7 fixation screw projects approximately 3 mm proud to the fixation plate, unchanged. Findings may be sequela of mild motion at C6-C7. 5.? Unchanged mild degenerative disc disease at C7-T1. Discharge Plan Discharge Clinical Impression: Fibromyalgia, Acute anxiety, Panic disorder, Chronic neck pain Patient Disposition: Home, Self-Care Instructions: Fibromyalgia (ED), Anxiety (ED), Panic Attack (ED) Prescriptions: New naproxen 500 mg tablet 500 mg PO BID PRN (Reason: pain) Qty: 14 0RF cyclobenzaprine 10 mg tablet 10 mg PO Q8H Qty: 14 0RF tramadol 50 mg tablet 50 mg PO Q8H PRN (Reason: pain) Qty: 10 0RF Rx Instructions: May partially fill upon patient request No Action omeprazole magnesium [Prilosec OTC] 20 mg tablet,delayed release (DR/EC) 20 mg PO DAILY 14 Days Qty: 14 0RF morphine 15 mg tablet 15 mg PO Q6H PRN (Reason: pain) 3 Days Qty: 12 0RF prednisone 20 mg tablet 40 mg PO DAILY 4 Days Qty: 8 0RF ketorolac 10 mg tablet 10 mg PO Q6H PRN (Reason: pain) 5 Days Qty: 20 0RF Rx Instructions: Patient received Toradol in the emergency room. cyclobenzaprine 5 mg tablet 5 mg PO BEDTIME PRN (Reason: muscle spasm) Qty: 4 0RF Referrals: Physician,Unknown J [Primary Care Provider] - 3 days (your pcp) Stand Alone Forms: Work/School Release Interventions: ED Discharge Assessment Last Done: 04/21/22 17:42 Discharge Date/Time: 04/21/22 17:44
[2022-04-21] MEDS: Cyclobenzaprine HCl 10 MG TABLET PO (17:17)
== END 2022-04-21 17:44 | disposition home or self-care (01) ==
PROVIDERS: Physician Assistant Medical; Emergency Provider Emergency Medicine Emergency Medical Services
DX: M79.7 Fibromyalgia (principal); F41.1 Generalized anxiety disorder; F43.0 Acute stress reaction; M54.50 Low back pain, unspecified; M54.2 Cervicalgia; R51.9 Headache, unspecified; Z79.899 Other long term (current) drug therapy
CPT/HCPCS: 36415; 70450; 72125; 80053; 83735; 84439; 84443; 99283

== ENCOUNTER 2023-01-19 18:44 | Emergency (ER) | payer MEDICARE, SELFPAY ==
--- NOTE | ~2023-01-19 | XR_ITS ---
EXAMINATION: XR SACRUM AND COCCYX CLINICAL INFORMATION: Pain COMPARISON: None available. TECHNIQUE: 2 views of the sacrum and 2 views of the coccyx were obtained. FINDINGS: AP view is limited due to overlying bowel gas. No acute fracture or dislocation. Normal sacroiliac joints. XR/XR sacrum coccyx min 2V IMPRESSION: Limited exam. No acute fracture or dislocation.
--- NOTE | ~2023-01-19 | XR_ITS ---
EXAMINATION: XR LUMBOSACRAL SPINE CLINICAL INFORMATION: Pain COMPARISON: Previous x-ray most recent November 2019 TECHNIQUE: Three views of the lumbosacral spine. FINDINGS: There is slight curvature of the lumbar spine to the left. This is new from 2020 exam and may be related to pain or positioning. Bone alignment is otherwise normal. No fracture or dislocation. Mild degenerative spondylosis at L2-L3 and L3-L4. Normal disc spaces. XR/XR lumbar spine 2-3V IMPRESSION: Mild degenerative spondylosis at L2-L3 and L3-L4.
--- NOTE | 2023-01-19 19:10 | ED_ITS ---
HPI - Back Pain/Injury General Chief Complaint: Back Pain/Injury Stated Complaint: back pain Time Seen by Provider: 01/19/23 21:57 Source: patient Limitations: no limitations History of Present Illness HPI Narrative: 57-year-old female presents with low back pain. The pain is severe. Started 2 days ago. Worse with position. The pain radiates down her legs and associated with some tingling sensation. There is no loss of bowel or bladder control. There is no saddle paresthesias. Patient denies history of back pain. She denies any fevers or chills. She denies any urinary complaints. Patient reports having dropped some stuff all cleaning house, nearly falling and catching herself and twisting. Related Data Previous Rx's Medication Instructions Recorded omeprazole magnesium 20 mg 20 mg PO DAILY 14 days #14 tabs 05/20/20 tablet,delayed release (Prilosec OTC) morphine 15 mg immediate release 15 mg PO Q6H PRN pain 3 days #12 04/18/21 tablet tabs prednisone 20 mg tablet 40 mg PO DAILY 4 days #8 tabs 04/18/21 cyclobenzaprine 5 mg tablet 5 mg PO BEDTIME PRN muscle spasm 09/03/21 #4 tabs ketorolac 10 mg tablet 10 mg PO Q6H PRN pain 5 days #20 09/03/21 tabs cyclobenzaprine 10 mg tablet 10 mg PO Q8H #14 tabs 04/21/22 naproxen 500 mg tablet 500 mg PO BID PRN pain #14 tabs 04/21/22 tramadol 50 mg tablet 50 mg PO Q8H PRN pain #10 tabs 04/21/22 acetaminophen 500 mg capsule 1,000 mg PO Q6H PRN fever or pain 01/19/23 #30 caps capsaicin 0.1 % topical cream 1 appl topical TID PRN pain (scale 01/19/23 score 1-3) #56.6 grams ibuprofen 600 mg tablet 600 mg PO Q8H PRN fever or pain 01/19/23 #20 tabs methocarbamol 750 mg tablet 750 mg PO Q8H PRN spasms #10 tabs 01/19/23 Allergies Allergy/AdvReac Type Severity Reaction Status Date / Time propoxyphene AdvReac Mild NAUSEA Verified 12/17/21 10:55 [From DARVOCET-N] Review of Systems Review of Systems: CONSTITUTIONAL: Denies weight loss, fever and chills. HEENT: Denies changes in vision and hearing. RESPIRATORY: Denies SOB and cough. CV: Denies palpitations no CP. GI: Denies abdominal pain, nausea, vomiting and diarrhea. : Denies dysuria and urinary frequency. MSK: + myalgia and joint pain. SKIN: Denies rash and pruritus. NEUROLOGICAL: Denies headache and syncope. PSYCHIATRIC: Denies recent changes in mood. Denies anxiety and depression. All other ROS are negative unless in HPI PMFSH Past Medical History Medical History Arthritis Breast cancer Carpal tunnel syndrome DVT (deep venous thrombosis) IBS (irritable bowel syndrome) Migraines Social History Social History Alcohol intake: never Patient Tobacco Use Status: Current everyday Tobacco user Advance Directives: No Advance Directives Information Provided: Yes Physical Exam Vital Signs: Vital Signs: Last Vital Signs Temp 97.4 F 01/19/23 19:11 Pulse 59 01/19/23 19:11 Resp 16 01/19/23 19:11 BP 118/71 01/19/23 19:11 Pulse Ox 98 01/19/23 19:11 O2 Del Method Room Air 01/19/23 19:11 BMI result Body Mass Index 18.9 GEN: Well developed, no acute distress, alert, oriented HEENT: Normocephalic, atraumatic, normal external ears, nose appears normal Eyes: Normal to appearance Neck: Supple, no lymphadenopathy Respiratory: Talks in complete sentences, no respiratory distress Extremities: No clubbing cyanosis or edema Neurologic: No focal neurologic deficits, cranial nerves 2-12 intact, gait normal Skin: No rash Back: lumbar paraspinous tenderness bilateral, no midline or stepoff Course Course Course Narrative: This is an RME: Additional HPI, ROS, PE not included below will be deferred to primary provider. This is a [id number], with a past medical history of Migraines, IBS, DVT not on anticoagulants, carpal tunnel syndrome, breast cancer and arthritis, presenting to the emergency department with a complaint of back pain since to day. Patient states that she was walking down the steps while carrying multiple items, and quickly turned and instantly felt pain in her back. Pt is ambulatory but using wheelchair intermittently. TTP to lumbar/sacrum region. Plan: lumbar & sacral x-rays ordered Reevaluation(s) Reevaluation #1: Workup is complete, x-rays were negative for traumatic injury. Patient will be treated for musculoskeletal back pain. There is no evidence of acute cauda equina syndrome, no loss of bowel or bladder control or saddle paresthesias. Patient denies intravenous drug abuse or cough or fevers and has no midline tenderness suggest epidural abscess. Medical Decision Making Medical Decision Making [facility] Narrative: This patient presents with back pain most consistent with strain. Differential diagnoses includes lumbago versus musculoskeletal spasm / strain versus sciatica. No back pain red flags on history or physical. Presentation not consistent with malignancy (lack of history of malignancy, lack of B symptoms), fracture (no trauma, no bony tenderness to palpation), cauda equina (no bowel or urinary incontinence/retention, no saddle anesthesia, no distal weakness), AAA, viscus perforation , pulmonary embolism, renal colic, pyelonephritis (afebrile, no CVAT, no urinary symptoms). Given the clinical picture, no indication for imaging at this time. Plan: pain control, supportive care, reassess Differential Diagnosis Differential Diagnoses: The differential diagnosis associated with the presentation includes (see above) Independent Interpretation I performed an independent interpretation of an: Plain X-Ray (L-spine, sacral coccygeal, no acute traumatic injury) Prescription Management I considered prescription management with: Pain Medication Discharge Plan Discharge Clinical Impression: Lumbar radiculopathy Patient Disposition: Home, Self-Care Instructions: Lumbar Radiculopathy (ED) Prescriptions: New methocarbamol 750 mg tablet 750 mg PO Q8H PRN (Reason: spasms) Qty: 10 0RF ibuprofen 600 mg tablet 600 mg PO Q8H PRN (Reason: fever or pain) Qty: 20 0RF acetaminophen 500 mg capsule 1,000 mg PO Q6H PRN (Reason: fever or pain) Qty: 30 0RF capsaicin 0.1 % cream 1 appl topical TID PRN (Reason: pain (scale score 1-3)) Qty: 56.6 0RF Rx Instructions: do not wash area for at least 30 min after application No Action omeprazole magnesium [Prilosec OTC] 20 mg tablet,delayed release (DR/EC) 20 mg PO DAILY 14 Days Qty: 14 0RF naproxen 500 mg tablet 500 mg PO BID PRN (Reason: pain) Qty: 14 0RF cyclobenzaprine 10 mg tablet 10 mg PO Q8H Qty: 14 0RF tramadol 50 mg tablet 50 mg PO Q8H PRN (Reason: pain) Qty: 10 0RF Rx Instructions: May partially fill upon patient request morphine 15 mg tablet 15 mg PO Q6H PRN (Reason: pain) 3 Days Qty: 12 0RF prednisone 20 mg tablet 40 mg PO DAILY 4 Days Qty: 8 0RF ketorolac 10 mg tablet 10 mg PO Q6H PRN (Reason: pain) 5 Days Qty: 20 0RF Rx Instructions: Patient received Toradol in the emergency room. cyclobenzaprine 5 mg tablet 5 mg PO BEDTIME PRN (Reason: muscle spasm) Qty: 4 0RF Referrals: Physician,Unknown J [Primary Care Provider] - (PMD 1 week)
[2023-01-19 19:11] VITALS: BP 118/71; PULSE 59; RESP 16; TEMP 36.3; O2SAT 98; BMI 18.9
--- NOTE | 2023-01-19 21:42 | PC.NURSE ---
pt resting on the stretcher, no distress
[2023-01-19] MEDS: Ibuprofen 600 MG TABLET PO (22:21)
[2023-01-19] MEDS: Cyclobenzaprine HCl 10 MG TABLET PO (22:21)
[2023-01-19] MEDS: Acetaminophen 325 MG TABLET 975 MG PO (22:22)
[2023-01-19] MEDS: dexAMETHasone 2 MG TABLET 10 MG PO (22:22)
== END 2023-01-19 22:43 | disposition home or self-care (01) ==
PROVIDERS: Emergency Provider Emergency Medicine
DX: M54.16 Radiculopathy, lumbar region (principal); M53.3 Sacrococcygeal disorders, not elsewhere classified; F17.200 Nicotine dependence, unspecified, uncomplicated; Z71.6 Tobacco abuse counseling; Z79.899 Other long term (current) drug therapy
CPT/HCPCS: 72100; 72220; 99283; J8540